=== PATIENT | male | born 2000 | race Hispanic/Latino ===

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

== ENCOUNTER 2024-05-18 20:02 | Emergency (ER) | payer OTHER ==
[~2024-05-18] VITALS: Ht 188 cm; Wt 63.0 kg
[~2024-05-18 20:02] MED LIST changes: +ONDANSETRON ODT4 MG PO
[2024-05-18 20:57] LABS: BILIRUBIN, URINE NEGATIVE (negative); BLOOD/HGB, URINE LARGE (Negative); KETONE, URINE NEGATIVE (Negative); LEUK ESTERASE, URINE MODERATE (negative); NITRITE, URINE POSITIVE (negative)
[2024-05-18] MEDS ORDERED: PHENAZOPYRIDINE HCL 95 MG TAB PO ONE (21:00)
[2024-05-18 21:03] LABS: BACTERIA, URINE 1+ /hpf (negative); CASTS, URINE NONE SEEN \\lpf; COLLECTION TYPE, URINE CLEAN CATCH; CRYSTALS, URINE NONE SEEN (0-1+); EPITHELIAL CELLS, URINE NONE SEE /lpf (0-1+); REFLEX CULTURE, URINE Yes (No); WHITE BLOOD CELLS, URINE 41-50 /HPF (0-5)
[2024-05-18] MEDS ORDERED: PYRIDIUM200 MG PO (21:18)
[2024-05-18] MEDS ORDERED: MACROBID 100 M100 MG PO (21:18)
[2024-05-18 21:26] VITALS: BP 128/75
[2024-05-18 22:25] LABS: N. GONORRRHOEAE BY PCR NOT DETECTED (NOT DETECT)
== END 2024-05-18 21:27 | disposition home or self-care (01) ==
LOC: ED 20:02
PROVIDERS: Family Medicine
DX: N39.0 Urinary tract infection, site not specified (principal)
CPT/HCPCS: 81001; 87088; 87186; 99283